=== PATIENT | female | born 1945 | race Caucasian/White ===

== ENCOUNTER 2020-11-17 07:45 | Inpatient (IN) | payer OTHER ==
[~2020-11-17] VITALS: Ht 162.6 cm; Wt 104.3 kg
[2020-11-17] MEDS ORDERED: [UNRECOGNIZED DRUG - OTHER] PO (09:50)
[2020-11-17] MEDS ORDERED: CARVEDILOL12.5 MG PO (09:51)
[2020-11-17] MEDS ORDERED: LOSARTAN-HCTZ1 EAC1 PO (09:52)
[2020-11-17] MEDS ORDERED: ACID REDUCER20 M1 PO (09:52)
[2020-11-17] MEDS ORDERED: GABAPEN PO (09:53)
[2020-11-17] MEDS ORDERED: SINGULAIR10 MG PO (09:53)
[2020-11-17] MEDS ORDERED: TAGAMET400 MG PO (09:54)
[2020-11-24] MEDS ORDERED: GABAPENTIN800 M1 PO (13:36)
[2020-11-26] MEDS ORDERED: ELIQUIS2.5 MG PO (07:45)
[2020-11-26] MEDS ORDERED: DUI500 PO (07:45)
[2020-11-26] MEDS ORDERED: PERCOCET 5-3251 EACH PO (07:45)
== END 2020-11-26 13:38 | DRG 470 ==
LOC: SURH 11-23 07:00 → MEDJ 11-23 07:11 → O/R 11-23 07:11 → SURH 11-23 07:11 → MEDJ 11-24 17:19 → SURH 11-25 16:17
PROVIDERS: ADMIT Orthopaedic Surgery; ATTEND Orthopaedic Surgery
PROC: 0SRC0J9 Replacement of Right Knee Joint with Synthetic Substitute, Cemented, Open Approach (ICD-10-PCS; principal; 2020-11-23 07:00)
PROC: 8E0ZXY6 Isolation (ICD-10-PCS; 2020-11-24)
PROC: 4A12X4Z Monitoring of Cardiac Electrical Activity, External Approach (ICD-10-PCS; 2020-11-24)
DX: M17.11 Unilateral primary osteoarthritis, right knee (principal); D62 Acute posthemorrhagic anemia; I10 Essential (primary) hypertension; Z20.822 Contact with and (suspected) exposure to COVID-19

== ENCOUNTER 2020-11-19 10:45 | Outpatient (CLI) | payer OTHER ==
[~2020-11-19 10:45] MED LIST: ACID REDUCER20 M1 PO; CARVEDILOL12.5 MG PO; GABAPEN PO; LOSARTAN-HCTZ1 EAC1 PO; SINGULAIR10 MG PO; TAGAMET400 MG PO; [UNRECOGNIZED DRUG - OTHER] PO
== END 2020-11-19 10:50 | disposition home or self-care (01) ==
LOC: TOM 10:45
PROVIDERS: ATTEND Internal Medicine Geriatric Medicine
DX: R07.89 Other chest pain (principal); J18.8 Other pneumonia, unspecified organism; Z86.19 Personal history of other infectious and parasitic diseases

== ENCOUNTER 2022-08-02 14:08 | Inpatient (IN) | payer OTHER ==
[~2022-08-02] VITALS: Ht 162.6 cm; Wt 106.1 kg
[~2022-08-02 14:08] MED LIST changes: +DUI500 PO; +ELIQUIS2.5 MG PO; +GABAPENTIN800 M1 PO; +PERCOCET 5-3251 EACH PO
[2022-08-03] MEDS ORDERED: HYDROCHLOROTHIA25 MG PO (09:12)
[2022-08-03] MEDS ORDERED: COZAAR100 MG PO (09:12)
[2022-08-03] MEDS ORDERED: OMEPRAZOLE-BIC1 EAC1 PO (09:13)
[2022-08-03] MEDS ORDERED: SINGULAIR10 MG PO (09:13)
[2022-08-03] MEDS ORDERED: GABAPENTIN800 M1 PO (09:14)
[2022-08-03] MEDS ORDERED: HYDRALAZINE HCL25 MG (09:15)
[2022-08-03] MEDS ORDERED: [UNRECOGNIZED DRUG - OTHER] PO (09:15)
[2022-08-09] MEDS ORDERED: ROPINIROLE HCL5 MG (08:33)
[2022-08-09] MEDS ORDERED: CIMETIDINE400 MG (08:33)
[2022-08-09] MEDS ORDERED: LORATADINE10 MG (08:33)
[2022-08-09] MEDS ORDERED: OMEPRAZOLE20 MG (08:33)
[2022-08-09] MEDS ORDERED: CLOTRIMAZOLE-BE15 G1 (08:33)
[2022-08-10] MEDS ORDERED: CEFADROXIL500 MG PO (17:08)
[2022-08-10] MEDS ORDERED: PERCOCET 5-3251 EACH PO (17:08)
[2022-08-10] MEDS ORDERED: ELIQUIS2.5 MG PO (17:08)
== END 2022-08-10 19:54 | DRG 470 ==
LOC: SURH 08-08 06:21 → O/R 08-08 06:21 → SURH 08-08 07:00
PROVIDERS: ADMIT Orthopaedic Surgery; ATTEND Orthopaedic Surgery
PROC: 0SRD0J9 Replacement of Left Knee Joint with Synthetic Substitute, Cemented, Open Approach (ICD-10-PCS; principal; 2022-08-08 10:15)
DX: M17.12 Unilateral primary osteoarthritis, left knee (principal); D62 Acute posthemorrhagic anemia; M81.0 Age-related osteoporosis without current pathological fracture; E66.01 Morbid (severe) obesity due to excess calories; I10 Essential (primary) hypertension; Z96.652 Presence of left artificial knee joint; Z20.822 Contact with and (suspected) exposure to COVID-19; G47.33 Obstructive sleep apnea (adult) (pediatric)